=== PATIENT | male | born 1950 | race Caucasian/White ===

== ENCOUNTER 2018-02-17 07:40 | Emergency (ER) | payer MEDICARE ==
[~2018-02-17] VITALS: Ht 188 cm; Wt 147.5 kg
[2018-02-17 07:43] VITALS: BP 179/86; PULSE 85; RESP 18; TEMP 98.7; O2SAT 98
[2018-02-17] MEDS ORDERED: predniSONE 20 MG TAB PO ONE (08:00)
[2018-02-17] MEDS ORDERED: KETOROLAC TROMETHAMINE 60 MG/2 ML (IM) VIAL IM ONE (08:00)
[2018-02-17] MEDS: RESP: ALBUTEROL 2.5 MG/IPRATROPIUM 0.5 MG NEB (SCH) INH (08:43)
[2018-02-17] MEDS ORDERED: BENZ100 PO (08:59)
[2018-02-17] MEDS ORDERED: AZIT500T2 PO (08:59)
[2018-02-17] MEDS ORDERED: IBUP1TAB7 PO (08:59)
[2018-02-17] MEDS ORDERED: PRED-503 PO (08:59)
[2018-02-17] MEDS ORDERED: VENTAER INH (08:59)
--- NOTE | 2018-02-17 08:59 | PD ---
HPI Chief Complaint: Cold / Flu Symptoms Time Seen by Provider: 07:49 Travel History International Travel<30 days: No Contact w/Intl Traveler<30days: No Traveled to known affect area: No History of Present Illness HPI 68-year-old male presents to the emergency department with complaint of dry cough, nasal congestion, wheezing, headache since Tuesday. Reports chest tightness and shortness of breath. Denies chest pain. Denies fevers, vomiting. Denies sore throat, ear pain. Cough is worse at night. No known relieving or aggravating factors. Symptoms are mild to moderate in severity. Has tried nasal spray, Mucinex, Aleve, vapor rub to his chest for symptom management. No one else with similar symptoms. Denies history of COPD, asthma , emphysema. Primary care provider is Dr. Rosales. No known allergies. History of quadruple bypass and hypercholesterolemia. Denies anticoagulant therapy. Has no other medical complaints. No other modifying factors or associated signs and symptoms. PFSH Social History Tobacco Use: No Allergies-Medications (Allergen,Severity, Reaction): Coded Allergies: No Known Allergies (Unverified , 02/17/18) Reported Meds & Prescriptions Reported Meds & Active Scripts Active Ibuprofen 800 Mg Tab 800 Mg PO Q8H PRN Ventolin Hfa 18 GM Inh (Albuterol Sulfate) 90 Mcg/Act Aer 2 Puff INH Q4-6H PRN Azithromycin 500 Mg Tab 500 Mg PO DAILY Tessalon Perles (Benzonatate) 100 Mg Cap 100 Mg PO TID PRN 3 Days Deltasone (Prednisone) 20 Mg Tab 40 Mg PO DAILY 4 Days start 02/18/2018 Review of Systems Except as stated in HPI: all other systems reviewed are Neg Physical Exam Narrative GENERAL: Well-nourished, well-developed patient, in no acute distress ; afebrile, nontoxic-appearing SKIN: Warm and dry. HEAD: Atraumatic. Normocephalic. EYES: Pupils equal and round. No scleral icterus. No injection or drainage. ENT: Mucosa pink and moist. No erythema or exudates. No uvular edema. No uvular , palatal, or tonsillar deviation. Airway patent. Nares without nasal blood, purulent drainage or septal hematoma. EARS: Bilateral pinnae and external canals appear within normal limits. Bilateral tympanic membranes without erythema, dullness or perforation. NECK: Trachea midline. No lymphadenopathy. CARDIOVASCULAR: Regular rate and rhythm. No murmur appreciated. RESPIRATORY: No accessory muscle use. Lungs with mild Wheezing throughout to auscultation. Breath sounds equal bilaterally. No retractions or tachypnea. No Audible wheezing noted. GASTROINTESTINAL: Abdomen soft, non-tender, nondistended. Hepatic and splenic margins not palpable. Bowel sounds are active 4 quadrants. MUSCULOSKELETAL: No obvious deformities. No clubbing. No cyanosis. No edema. NEUROLOGICAL: Awake and alert. Oriented 3. No obvious cranial nerve deficits. Motor grossly within normal limits. Normal speech. Moves all extremities. 5/5 strength to all extremities. PSYCHIATRIC: Appropriate mood and affect; insight and judgment normal. Data Data Last Documented VS Vital Signs Date Time Temp Pulse Resp B/P (MAP) Pulse Ox O2 Delivery O2 Flow Rate FiO2 02/17/18 07:43 98.7 85 18 179/86 (117) 98 Orders Orders Prednisone (Deltasone) (02/17/18 08:00) Albuterol-Ipratropium Neb (Duoneb Neb) (02/17/18 08:00) Ketorolac Inj (Toradol Inj) (02/17/18 08:00) Ed Discharge Order (02/17/18 09:26) [facility] Medical Decision Making Medical Screen Exam Complete: Yes Emergency Medical Condition: Yes Medical Record Reviewed: Yes Differential Diagnosis Bronchitis, pneumonia, influenza, upper respiratory infection Narrative Course 68-year-old male HPI and physical exam consistent with acute bronchitis. No acute distress and without retractions or tachypnea. Oxygen saturation is 98% on room air. Lungs with mild wheezing throughout. DuoNeb 1, Deltasone, Toradol ordered. 0926: On reexamination the patient reports improvement in symptoms. Denies chest tightness, shortness of breath. Lungs are clear and equal throughout. Says his headache is pretty much gone. Azithromycin, Ventolin inhaler, Tessalon Perles, Deltasone, ibuprofen prescribed for home. Instructed patient to follow up with primary care provider. Patient verbalizes understanding and agreement with treatment plan. Patient is medically cleared and stable for discharge. Discussed reasons to return to the emergency department. Patient agrees with treatment plan. The patients vital signs are stable and the patient is stable for outpatient follow-up and treatment. Patient discharged home, stable and in no acute distress. Diagnosis Primary Impression: Bronchitis Referrals: Primary Care Physician Patient Instructions: Acute Bronchitis (ED), General Instructions Additional Instructions: Use Albuterol inhaler as prescribed Take oral steroids as prescribed and complete full course Use Tessalon Perles as prescribed to decrease coughing spasms [id number] decongestants or antihistamines as directed and as needed for symptom management Your cough can last 4-6 weeks Drink plenty of fluids to prevent dehydration Use hot air humidifier to decrease cough exacerbation Turn off ceiling fans and sleep with head of bed elevated Avoid triggers such as second hand smoke, dust, known allergens Follow-up with your primary care provider Return to the emergency department immediately with worsening of symptoms Med/Other Pt SpecificInfo: Prescription(s) given Scripts Ibuprofen (Ibuprofen) 800 Mg Tab 800 MG PO Q8H Y for PAIN SCALE 1 TO 10, #20 TAB 0 Refills Prov: Eliza TidwellP 02/17/18 Albuterol 18 GM Inh (Ventolin Hfa 18 GM Inh) 90 Mcg/Act Aer 2 PUFF INH Q4-6H Y for SOB/WHEEZING, #1 INHALER 0 Refills Prov: Eliza TidwellP 02/17/18 Azithromycin (Azithromycin) 500 Mg Tab 500 MG PO DAILY for Infection, #5 TAB 0 Refills Prov: Eliza TidwellP 02/17/18 Benzonatate (Tessalon Perles) 100 Mg Cap 100 MG PO TID Y for COUGH for 3 Days, CAP 0 Refills Prov: Eliza TidwellP 02/17/18 Prednisone (Deltasone) 20 Mg Tab 40 MG PO DAILY for 4 Days, #8 TAB 0 Refills start 02/18/2018 Prov: Eliza Tidwell [employer] 02/17/18 Disposition: 01 DISCHARGE HOME Condition: Stable Eliza TidwellP Feb 17, 2018 08:59
== END 2018-02-17 09:45 | disposition home or self-care (01) ==
LOC: NEPD 07:40
DX: J40 Bronchitis, not specified as acute or chronic (principal); R51 Headache; Z79.899 Other long term (current) drug therapy; E78.00 Pure hypercholesterolemia, unspecified
CPT/HCPCS: 94640; 94664; 96372; 99283; J1885; J7512